=== PATIENT | male | born 1990 | race Caucasian/White ===

== ENCOUNTER 2020-03-30 08:08 | Emergency (ER) | payer OTHER ==
[~2020-03-30] VITALS: Ht 177.8 cm; Wt 74.8 kg
[~2020-03-30 08:08] MED LIST: EPIPEN 2-P0.3 MG/0.3 IM; KEFLEX500 MG PO; NORCO 5-325 TA1 EACH PO; VENTOLIN HFA18 GM INH; ZOFRAN ODT4 MG PO; ZOFRAN4 MG PO
[2020-03-30] MEDS ORDERED: NORCO 5-325 TA1 EACH PO (09:48)
[2020-03-31] MEDS ORDERED: HYDROCODON-ACE1 EA10 PO (10:41)
== END 2020-03-30 10:23 | disposition home or self-care (01) ==
LOC: ED 08:08 → EDBD 08:08 → ED 10:23
DX: S93.602A Unspecified sprain of left foot, initial encounter (principal); S93.402A Sprain of unspecified ligament of left ankle, initial encounter; Z87.01 Personal history of pneumonia (recurrent); F17.200 Nicotine dependence, unspecified, uncomplicated; W17.89XA Other fall from one level to another, initial encounter
CPT/HCPCS: 73610; 73630; 96372; 99283-25; A9270; J1170

== ENCOUNTER 2021-04-16 00:39 | Emergency (ER) | payer OTHER ==
[~2021-04-16] VITALS: Ht 175.3 cm; Wt 83.9 kg
[~2021-04-16 00:39] MED LIST changes: +HYDROCODON-ACE1 EA10 PO
[2021-04-16] MEDS ORDERED: ZOFRAN4 MG PO (02:10)
== END 2021-04-16 02:25 | disposition home or self-care (01) ==
LOC: ED 00:39
DX: K92.1 Melena (principal); J45.909 Unspecified asthma, uncomplicated; F17.200 Nicotine dependence, unspecified, uncomplicated; Z91.013 Allergy to seafood; Z88.8 Allergy status to other drugs, medicaments and biological substances; Z91.018 Allergy to other foods
CPT/HCPCS: 80053; 85025; 85610; 85730; 99284; A9270

== ENCOUNTER 2022-02-26 12:29 | Emergency (ER) | payer OTHER ==
[~2022-02-26] VITALS: Ht 175.3 cm; Wt 86.2 kg
[~2022-02-26 12:29] MED LIST changes: +PREDNISONE20 MG PO
== END 2022-02-26 13:08 | disposition home or self-care (01) ==
LOC: ED 12:29
DX: T28.0XXA Burn of mouth and pharynx, initial encounter (principal); X10.1XXA Contact with hot food, initial encounter; J45.909 Unspecified asthma, uncomplicated; F17.200 Nicotine dependence, unspecified, uncomplicated; Z91.013 Allergy to seafood; Z88.8 Allergy status to other drugs, medicaments and biological substances; Z91.018 Allergy to other foods; Z79.899 Other long term (current) drug therapy; Z79.52 Long term (current) use of systemic steroids
CPT/HCPCS: 99283

== ENCOUNTER 2023-04-18 19:57 | Emergency (ER) | payer OTHER ==
[~2023-04-18] VITALS: Ht 175.3 cm; Wt 80.8 kg
[2023-04-18] MEDS ORDERED: LAMOTRIGINE100 MG PO (20:10)
[2023-04-18] MEDS ORDERED: SUDOGEST30 MG PO (20:10)
[2023-04-18] MEDS ORDERED: HYDROXYZINE HCL25 MG PO (20:10)
[2023-04-18 21:13] VITALS: BP 138/98
== END 2023-04-18 21:13 | disposition home or self-care (01) ==
LOC: ED 19:57
DX: K59.00 Constipation, unspecified (principal); K64.4 Residual hemorrhoidal skin tags; J45.909 Unspecified asthma, uncomplicated; F17.200 Nicotine dependence, unspecified, uncomplicated; Z91.013 Allergy to seafood; Z91.018 Allergy to other foods; Z91.048 Other nonmedicinal substance allergy status; Z79.899 Other long term (current) drug therapy

== ENCOUNTER 2023-07-03 18:08 | Emergency (ER) | payer OTHER ==
[~2023-07-03] VITALS: Ht 175.3 cm; Wt 80.7 kg
[~2023-07-03 18:08] MED LIST changes: +HYDROXYZINE HCL25 MG PO; +LAMOTRIGINE100 MG PO; +SUDOGEST30 MG PO
[2023-07-03] MEDS ORDERED: VENTOLIN HFA18 GM INH (21:08)
[2023-07-03 21:45] VITALS: BP 130/92
== END 2023-07-03 21:45 | disposition home or self-care (01) ==
LOC: ED 18:08
DX: B34.9 Viral infection, unspecified (principal); J45.909 Unspecified asthma, uncomplicated; F17.200 Nicotine dependence, unspecified, uncomplicated; Z91.040 Latex allergy status; Z91.013 Allergy to seafood; Z91.018 Allergy to other foods; Z91.048 Other nonmedicinal substance allergy status; Z79.899 Other long term (current) drug therapy
CPT/HCPCS: 99282